=== PATIENT | female | born 2000 | race African-American/Black ===

== ENCOUNTER 2022-07-02 15:47 | Inpatient (IN) ==
[2022-07-02] MEDS ORDERED: miSOPROStoL 200 MCG TABLET RECTAL PRN (16:42)
[2022-07-02] MEDS ORDERED: METHYLERGONOVINE 0.2 MG/1 ML AMP IM PRN (16:42)
[2022-07-02] MEDS ORDERED: TRANEXAMIC ACID 1,000 MG in SODIUM CHLORIDE 0.9% 100 ML IV PRN (16:42)
[2022-07-02] MEDS ORDERED: CARBOPROST TROMETHAMINE 250 MCG/ML AMP IM PRN (16:42)
[2022-07-02] MEDS ORDERED: OXYTOCIN/LR 20 UNIT/1,000 ML BAG IV ONE (16:42)
[2022-07-02] MEDS ORDERED: ONDANSETRON 4 MG/2 ML VIAL IV PRN (16:42)
[2022-07-02 17:38] LABS: Basophils % 0.2 % (0.0-0.8); Eosinophils % 0.4 % (0.00-10.9); Hematocrit 37.3 VOL% (35.7-47.0); Hemoglobin 11.7 GM/DL (12.0-16.0); Lymphocytes # 1.8 10*3/uL (1.4-4.0); Lymphocytes % 17.8 % (21.3-54.2); Mean Corpuscular HGB Conc 31.4 GM/DL (32-36); Mean Corpuscular Volume 80.9 FL (87-102); Mean Platelet Volume 11.6 FL (9.6-12.0); Monocytes % 10.5 % (1.7-12.7); Neutrophils % 70.1 % (38.7-73.9); Platelet Count 258 T/CUMM (130-400); Red Blood Count 4.61 MC/CUMM (3.8-5.5); Red Cell Distribution Width 14.3 % (9.3-17.3); White Blood Count 9.94 T/CUMM (4-12)
[2022-07-02 18:00] LABS: Albumin 2.9 G/DL (3.4-5.0); Bilirubin,Total 0.4 MG/DL (0.20-1.00); Calcium 9.2 MG/DL (8.5-10.1); Osmolality,Calculated 271.7 MOS/KG (273-304); Potassium 3.9 MMOL/L (3.5-5.1); Total Protein 7.7 G/DL (6.4-8.2)
[2022-07-02] MEDS ORDERED: AMPICILLIN INJ 2,000 MG in SODIUM CHLORIDE 0.9% 100 ML IV ONE (23:59)
[2022-07-03] MEDS: LACTATED RINGERS 1,000 ML IV PRN ×3 (00:13→12:13)
[2022-07-03] MEDS: OXYTOCIN/LR 20 UNIT/1,000 ML BAG IV SCH (00:26)
[2022-07-03] MEDS: AMPICILLIN INJ 1,000 MG in SODIUM CHLORIDE 0.9% 100 ML IV SCH ×5 (05:53→21:55)
[2022-07-03] MEDS ORDERED: NALOXONE 0.4 MG/ML VIAL IV PRN (05:59)
[2022-07-03] MEDS ORDERED: ONDANSETRON 4 MG/2 ML VIAL IV ONE (05:59)
[2022-07-03] MEDS ORDERED: hydrOXYzine HCL 25 MG/1 ML VIAL IM PRN (05:59)
[2022-07-03] MEDS ORDERED: ePHEDrine 50 MG/ML VIAL IV PRN (05:59)
[2022-07-03] MEDS ORDERED: FAMOTIDINE 20 MG/2 ML VIAL IV ONE (05:59)
[2022-07-03] MEDS ORDERED: CITRIC ACID/SODIUM CITRATE 30 ML UDCUP PO ONE (05:59)
[2022-07-03] MEDS ORDERED: PROMETHAZINE 25 MG/1 ML VIAL IM ONE (05:59)
[2022-07-03] MEDS ORDERED: diphenhydrAMINE 50 MG/1 ML VIAL IV PRN ×2 (05:59)
[2022-07-03] MEDS: fentaNYL 2 MCG/ROPIV 0.2% EPID 100 ML EPIDURAL SCH ×3 (08:15→22:55)
[2022-07-03 09:43] LABS: Mucus,Urine Occasional /LPF (Occasional); RBC,Urine 1 /HPF (0-4); Squamous Epithelial Cell,Urine Occasional /HPF (0-10)
[2022-07-03 09:44] LABS: Bilirubin,Urine Negative (Negative); Blood, Urine Negative (Negative); Glucose,Urine (UA) Negative (Negative); Ketones,Urine Negative (Negative); Nitrite,Urine Negative (Negative); Protein,Urine Negative (Negative); Urine Appearance Clear (Clear); Urine Color Yellow (Yellow)
[2022-07-04] MEDS: OXYTOCIN/LR 20 UNIT/1,000 ML BAG IV SCH (00:58)
[2022-07-04] MEDS: AMPICILLIN INJ 1,000 MG in SODIUM CHLORIDE 0.9% 100 ML IV SCH (02:18)
[2022-07-04] MEDS: fentaNYL 2 MCG/ROPIV 0.2% EPID 100 ML EPIDURAL SCH (05:35)
[2022-07-04] MEDS: LACTATED RINGERS 1,000 ML IV PRN (06:05)
[2022-07-04] MEDS ORDERED: miSOPROStoL 200 MCG TABLET ONE (07:17)
[2022-07-04] MEDS ORDERED: TRANEXAMIC ACID 1,000 MG/10 ML VIAL ONE (07:17)
[2022-07-04] MEDS ORDERED: SODIUM CHLORIDE 0.9% 0 ML IV ONE (07:17)
[2022-07-04] MEDS ORDERED: METHYLERGONOVINE 0.2 MG/1 ML AMP ONE (07:17)
[2022-07-04] MEDS ORDERED: CARBOPROST TROMETHAMINE 250 MCG/ML AMP IM ONE (07:17)
[2022-07-04] MEDS ORDERED: fentaNYL 100 MCG/2 ML VIAL ONE (07:22)
[2022-07-04] MEDS ORDERED: buprenorphine HCL 0.3 MG/ML VIAL ONE (07:22)
[2022-07-04] MEDS ORDERED: LIDOCAINE MPF 2% /EPI 20 ML VIAL ONE (07:24)
[2022-07-04] MEDS ORDERED: KETOROLAC 30 MG/1 ML VIAL ONE (07:24)
[2022-07-04] MEDS ORDERED: ONDANSETRON 4 MG/2 ML VIAL ONE (07:24)
[2022-07-04] MEDS ORDERED: OXYTOCIN 10 UNIT/ML VIAL IM ONE (07:30)
[2022-07-04] MEDS ORDERED: OXYTOCIN/LR 30 UNIT/1,000 ML BAG IV ONE (07:30)
[2022-07-04] MEDS ORDERED: ceFAZolin 2,000 MG/50 ML DUPLEX IV ONE (07:30)
[2022-07-04] MEDS ORDERED: FAMOTIDINE 20 MG/2 ML VIAL IV ONE (08:00)
[2022-07-04] MEDS ORDERED: CITRIC ACID/SODIUM CITRATE 30 ML UDCUP PO ONE (08:00)
[2022-07-04] MEDS ORDERED: ROPIVACAINE 0.5% 30 ML VIAL ONE (09:14)
[2022-07-04 09:16] LABS: Cord Arterial Blood HCO3 22.9 MMOL/L
[2022-07-04 09:19] LABS: Cord Venous Blood PCO2 44.4 MMHG; Cord Venous Blood PO2 37.7
[2022-07-04] MEDS ORDERED: RHO(D) IMMUNE GLOBULIN 300 MCG SYRINGE IM ONE (09:41)
[2022-07-04] MEDS ORDERED: OXYTOCIN/LR 20 UNIT/1,000 ML BAG IV ONE (09:41)
[2022-07-04] MEDS ORDERED: ONDANSETRON 4 MG/2 ML VIAL IV PRN (09:41)
[2022-07-04] MEDS ORDERED: MAGNESIUM HYDROXIDE SUSP 30 ML UDCUP PO PRN (09:41)
[2022-07-04] MEDS ORDERED: ACETAMINOPHEN 325 MG TABLET PO PRN (09:41)
[2022-07-04] MEDS ORDERED: LACTATED RINGERS 1,000 ML IV SCH (10:00)
[2022-07-04] MEDS: ACETAMINOPHEN 500 MG TABLET PO SCH ×2 (13:00→19:05)
[2022-07-04] MEDS ORDERED: HYDROmorphone 1 MG/1 ML SYRINGE IV PRN (13:43)
[2022-07-04] MEDS: KETOROLAC 30 MG/1 ML VIAL IV SCH ×2 (16:01→21:25)
[2022-07-04 16:54] LABS: Basophils % 0.2 % (0.0-0.8); Eosinophils % 0.1 % (0.00-10.9); Hematocrit 29.1 VOL% (35.7-47.0); Hemoglobin 9.1 GM/DL (12.0-16.0); Immature Granulocytes % 0.5 %; Immature Granulocytes Absolute 0.06 #; Lymphocytes # 1.8 10*3/uL (1.4-4.0); Lymphocytes % 15.3 % (21.3-54.2); Mean Corpuscular HGB Conc 31.3 GM/DL (32-36); Mean Corpuscular Volume 81.1 FL (87-102); Mean Platelet Volume 10.6 FL (9.6-12.0); Monocytes # 1.6 10*3/uL (0.11-0.8); Monocytes % 13.5 % (1.7-12.7); Neutrophils % 70.4 % (38.7-73.9); Platelet Count 196 T/CUMM (130-400); Red Blood Count 3.59 MC/CUMM (3.8-5.5); Red Cell Distribution Width 14.4 % (9.3-17.3)
[2022-07-04] MEDS: DOCUSATE SODIUM 100 MG CAPSULE PO SCH (21:25)
[2022-07-04] MEDS: SIMETHICONE CHEW 80 MG TABLET PO PRN (21:25)
[2022-07-05] MEDS: ACETAMINOPHEN 500 MG TABLET PO SCH ×2 (01:50→06:24)
[2022-07-05 05:48] LABS: Basophils % 0.2 % (0.0-0.8); Eosinophils # 0.1 10*3/uL (0.0-0.87); Eosinophils % 0.5 % (0.00-10.9); Hemoglobin 8.9 GM/DL (12.0-16.0); Immature Granulocytes % 0.6 %; Immature Granulocytes Absolute 0.07 #; Lymphocytes # 1.6 10*3/uL (1.4-4.0); Lymphocytes % 14.6 % (21.3-54.2); Mean Corpuscular HGB Conc 31.8 GM/DL (32-36); Mean Corpuscular Volume 81.2 FL (87-102); Mean Platelet Volume 11.3 FL (9.6-12.0); Monocytes # 1.5 10*3/uL (0.11-0.8); Monocytes % 13.9 % (1.7-12.7); Neutrophils % 70.2 % (38.7-73.9); Platelet Count 202 T/CUMM (130-400); Red Blood Count 3.45 MC/CUMM (3.8-5.5); Red Cell Distribution Width 14.6 % (9.3-17.3); White Blood Count 11.01 T/CUMM (4-12)
[2022-07-05] MEDS: KETOROLAC 30 MG/1 ML VIAL IV SCH (06:08)
[2022-07-05] MEDS: DOCUSATE SODIUM 100 MG CAPSULE PO SCH ×2 (10:00→21:02)
[2022-07-05] MEDS: MULTIVITAMIN (PRENATAL) TABLET PO SCH (10:00)
[2022-07-05] MEDS: IBUPROFEN 800 MG TABLET PO PRN ×2 (10:02→19:12)
[2022-07-05] MEDS ORDERED: PROMETHAZINE 25 MG/1 ML VIAL IM PRN (15:00)
[2022-07-05] MEDS ORDERED: MEPERIDINE 50 MG/1 ML VIAL IM PRN (15:00)
[2022-07-05] MEDS: SIMETHICONE CHEW 80 MG TABLET PO PRN (21:02)
[2022-07-06 08:09] VITALS: BP 126/76
[2022-07-06] MEDS: DOCUSATE SODIUM 100 MG CAPSULE PO SCH (09:20)
[2022-07-06] MEDS: MULTIVITAMIN (PRENATAL) TABLET PO SCH (09:20)
== END 2022-07-06 13:00 | disposition home or self-care (01) | DRG 788 ==
LOC: N.LD 15:47 → N.LDOUT 15:47 → N.LD 15:54 → N.OB 07-04 13:24
PROVIDERS: ADMIT Obstetrics & Gynecology; ATTEND Obstetrics & Gynecology
PROC: LDCSECT (ICD-10-PCS; 2022-07-04 08:30)